=== PATIENT | male | born 1970 | race Caucasian/White ===

== ENCOUNTER 2018-05-27 05:46 | Inpatient (IN) ==
[2018-05-27] MEDS ORDERED: Famotidine PF Inj 20 MG/2 ML Vial IV.PUSH ONE (06:09)
[2018-05-27] MEDS ORDERED: Gabapentin 300 MG Capsule PO ONE (06:09)
[2018-05-27] MEDS ORDERED: Celecoxib 200 MG Capsule PO ONE (06:09)
[2018-05-27] MEDS ORDERED: Dexamethasone Inj 20 MG/5 ML Vial IV.PUSH ONE (06:09)
[2018-05-27] MEDS ORDERED: Chlorhexidine 4% Topical 120 APPLIC/120 ML Bottle TOPICAL SCH (06:15)
[2018-05-27] MEDS ORDERED: Chlorhexidine Gluconate 2% 1 Pack (2 Cloths) TOPICAL ONE (06:21)
[2018-05-27] MEDS ORDERED: Metoprolol Tartrate 25 MG Tablet PO ONE (06:21)
[2018-05-27] MEDS ORDERED: Vancomycin Inj 1,000 MG in Sodium Chlor 0.9% Inj 250 ML IV.SIG SCH (07:00)
[2018-05-27] MEDS ORDERED: Sodium Chlor 0.9% Inj 500 ML IV.SIG SCH (07:00)
[2018-05-27] MEDS ORDERED: ceFAZolin 2 GM Premix Inj 2 GM/50 ML PIGGYBACK IV.SIG SCH ×2 (07:00→17:00)
[2018-05-27] MEDS ORDERED: Glycopyrrolate Inj 1 MG/5 ML Syringe IV.PUSH ONE (08:26)
[2018-05-27] MEDS ORDERED: Lidocaine PF 1% Inj 5 ML Syringe OTHER ONE (08:26)
[2018-05-27] MEDS ORDERED: Neostigmine Inj 5 MG/5 ML Syringe IV.PUSH ONE (08:26)
[2018-05-27] MEDS ORDERED: Phenylephrine/NS 1000 MCG/10ML Syringe IV.PUSH ONE (08:26)
[2018-05-27] MEDS ORDERED: TRANEXAMIC ACID IV.SIG SCH (08:30)
[2018-05-27] MEDS ORDERED: Sodium Chlor 0.9% Inj 40 ML, Bupivacaine Liposo PF 1.3% Inj 20 ML P-ARTICULR SCH ×2 (08:30)
[2018-05-27] MEDS ORDERED: SODIUM CHLOR 0.9% IV.SIG SCH (08:30)
[2018-05-27] MEDS ORDERED: Bupivacaine Liposomal PF 1.3% Inj 20 ML Vial ONE (10:19)
[2018-05-27] MEDS ORDERED: Bupivacaine/Epinephrine Inj 0.25% 50 ML Vial ONE (10:24)
[2018-05-27] MEDS ORDERED: Morphine Inj 4 MG/ML Vial IV.PUSH PRN (10:35)
[2018-05-27] MEDS ORDERED: Promethazine 25 MG Supp RECTAL PRN (10:35)
[2018-05-27] MEDS ORDERED: Bisacodyl 10 MG Supp RECTAL PRN (10:35)
[2018-05-27] MEDS ORDERED: Post-op Orders (for Pharmacy) OTHER STA (10:35)
--- NOTE | 2018-05-27 10:41 | P.OP ---
- Preoperative Diagnosis (1) Unilateral primary osteoarthritis, right hip Date of procedure: 05/27/18 Procedure: Right total hip arthroplasty by anterior approach Anesthesia: TOD Surgeon: Esteban Robles MD Box Estimator: SLADE Logan PA-C The surgical procedure was assisted by my physician assistant principal. My P.A. presence was necessary throughout this case for the manipulation and positioning of the surgical extremity. My P.A. was assisting me throughout the duration of this procedure. The skill set of a physician assistant principal was medically necessary to complete this procedure. During the surgical case the environmental technician was working at the back table and the physician assistant principal was directly assisting me. Operation and Findings: PLAN OF ACTIVITY Weight bear as tolerated. IMPLANTS USED DePuy Corail size [11] collared stem with a size [52] [place] Gription cup, [52 /32] Altrx poly liner, and a [32+1.5] Biolox ceramic head. DETAILS OF PROCEDURE: This patient has a long history of hip pain. Patient was found to have severe osteoarthritis. The patient had radiographic evidence of joint space narrowing with [id number] arthritis and osteophytes around the acetabulum as well as the femoral head. There was also some cystic changes. The patient failed conservative treatment with pain medications, anti-inflammatories, physical therapy, assistive devices including a cane, as well as therapeutic injection of the hip. Patient's hip arthritis was limiting his ability to ambulate and perform activities of daily living. The patient wished to proceed with surgery and informed consent was obtained. Operative site was marked. I discussed both posterior approach and anterior approach with the patient and decision was made for anterior approach. Patient was brought to OR and placed on OR table. IV sedation and general anesthesia was administered by anesthesiologist. Patient positioned on a Shantell table and was given IV antibiotics. Time-out procedure was performed. The hip and thigh were prepped with alcohol followed by Hibiclens. The thigh was draped in the usual sterile fashion. Clean Air Suite was used for this procedure. The procedure began with a 5-inch incision over the anterolateral thigh. Subcutaneous tissue was dissected with Bovie. The fascia over the tensa fasciae latae was incised. Care was taken to avoid injury to the lateral femoral cutaneous nerve. The tensor muscle was retracted laterally. Sartorius was retracted medially. Retractors were now placed. The reflected head of the rectus is now elevated. A capsulotomy was performed over the anterior head capsule. Sutures were placed to help retract the capsule. At this point the femoral head and neck were identified. With soft tissue protected, oscillating saw was used to make a cut through the femoral neck, the femoral head was now removed. At this point attention was turned to preparation of the acetabulum. The labrum was excised. The acetabulum was sequentially reamed up to size [52]. A [place] cup was now placed. Fluoroscopy was used to aid in identification of appropriate version. Cup was fully impacted and found to have excellent fit. Hole eliminator was now placed. The liner was now impacted into the cup. At this point the hip was externally rotated. A hook was placed around the proximal femur. The capsule was released off the lateral and medial femur. The hip was now extended and adducted. Retractors were placed around the proximal femur to allow for exposure. A box osteotome was used to remove the lateral cortex of the femoral neck. A broach was used to help lateralize the prosthesis. Canal finder was used to create a path down the canal. Next, the canal was sequentially broached up to size [11]. The canal was very tight distally. Flexible reamers were used distally. Size 11 was found to be an excellent fit. Calcar planer was placed. A standard head was placed, and the hip was reduced. The hip was found to have excellent stability with good range of motion. The leg lengths were measured under fluoroscopy and found to be equal compared to preoperatively. Trial broach was removed. The Corail stem was opened. Stem was fully impacted into the proximal femur in appropriate version. The femoral head was placed. The hip was again reduced. Fluoroscopy confirmed excellent alignment of prosthesis. The wound was thoroughly irrigated and capsule was closed with #1 Vicryl. The fascia over the tensor fasciae muscle was closed with #1 Vicryl, subcutaneous tissue was closed with 3-0 Vicryl and the skin was closed with zaheer and Dermabond skin closure. The capsule layers, muscle, and subcutaneous tissue were injected with a mixture of saline and bupivicaine. Dressings were applied. The patient was transferred to Recovery Room in stable condition.
--- NOTE | 2018-05-27 11:12 | P.DCO ---
- Physical Therapy Physical Therapy: Gait training, Safety evaluation Hip: Total hip, Protocol: Right Right Lower Extremity Weight Bearing: Weight bearing as tolerated - Nursing Dressing changes: Daily dressing change (Beginning 06/02/2018 unless the dressing has become saturated or disheveled. Remove outer dressing ensuring that surgical tape remains over the incision. Then replace outer dressing with Primapore avoiding the adhesive on the surgical tape. Primapore is will be changed every other day or every day depending on drainage.) - Certification Need for Home Health services: I have seen patient Jonel Rios on 05/27/18. My clinical findings support the need for the requested home health care services because: Need for Home Health Services: Limited mobility due to disease progression Homebound Certification: I certify that my clinical findings support that this patient is homebound because: Homebound Certification: Post-op weakness
[2018-05-27] MEDS ORDERED: fentaNYL Citrate Inj 100 MCG/2 ML Ampul ONE (11:24)
[2018-05-27] MEDS ORDERED: Tranexamic Acid Inj 1,000 MG in Sodium Chlor 0.9% Inj 100 ML IV.SIG SCH (12:00)
--- NOTE | 2018-05-27 14:11 | XR ---
EXAM DATE: 05/27/2018 12:00 AM EDT AGE/SEX: 48 years / Male INDICATIONS: Right anterior hip replacement. CLINICAL DATA: This is the patient's initial encounter. Patient reports that signs and symptoms have been present for 1 day and indicates a pain score of Nonresponsive. MEDICAL/SURGICAL HISTORY: None. None. COMPARISON: No prior exams available for comparison. CONCLUSION: Fluoroscopic image during placement of right hip arthroplasty. Electronically signed by: Andry Akins MD 05/27/2018 2:10 PM EDT
[2018-05-27] MEDS: Calcium/Vitamin D 250/125 MG Tablet PO SCH ×2 (14:40→18:16)
[2018-05-27] MEDS: Celecoxib 200 MG Capsule PO SCH (21:18)
[2018-05-27] MEDS: Senna/Docusate Sodium 8.6/50 MG Tablet PO SCH (21:18)
--- NOTE | 2018-05-28 07:13 | P.PNOP ---
Subjective Interval history: Doing well. Standing bedside. States that he is excited and ready to go home today Physical Exam Vital signs: Vital Signs 05/27/18 11:09 05/27/18 11:15 05/27/18 11:30 Temperature 98.1 F Pulse Rate 77 74 76 Respiratory Rate 19 12 18 Blood Pressure 119/57 L 113/57 L 138/78 Pulse Oximetry 100 100 100 05/27/18 11:45 05/27/18 12:00 05/27/18 15:11 Temperature 97.7 F Pulse Rate 70 66 Respiratory Rate 16 15 18 Blood Pressure 125/71 118/67 Pulse Oximetry 99 100 05/27/18 16:00 05/27/18 18:03 05/27/18 20:00 Temperature 97.3 F L 98.1 F Pulse Rate 64 62 Respiratory Rate 20 18 18 Blood Pressure 112/67 122/67 Pulse Oximetry 98 99 05/28/18 00:00 05/28/18 04:00 Temperature 97.8 F 97.9 F Pulse Rate 75 64 Respiratory Rate 18 17 Blood Pressure 117/55 L 103/66 Pulse Oximetry 98 98 Intake & Output 05/27/18 05/28/18 05/28/18 18:59 06:59 18:59 Intake Total 3009.7 / 3009.7 Output Total 350 / 350 Balance 2659.7 / 2659.7 Weight 64.6 kg 64 kg Intake: IV 559.7 / 559.7 Ofirmev Inj 1,000 mg In 100 ml 100 / 100 @ 400 mls/hr IV.SIG Q12H DEB Rx #:[id number] Cyklokapron Inj 970 MG In NS 109.7 / 109.7 Inj 100 ML @ 200 mls/hr IV.SIG ONCE DEB Rx#:[id number] Vancomycin Inj 1,000 MG In NS 250 / 250 Inj 250 ML @ 250 mls/hr IV.SIG MEDICAL LABORATORY TECHNICAL OFFICER DEB Rx#:[id number] Ancef 2 GM Premix Inj 2 gm In 100 / 100 50 ml @ 100 mls/hr IV.SIG Q8H DEB Rx#:[id number] Oral 900 / 900 Anesthesia Amount 1550 / 1550 Output: Urine 0 / 0 Estimated Blood Loss 350 / 350 Other: # Voids 2 Date of Last Bowel Movement 05/27/18 # Bowel Movements 0 Narrative: Right lower extremity: Clean dry dressings intact. No drainage through the silver dressing. Minimal swelling. Intact sensation distally with good capillary refills. Active dorsiflexion plantar flexion of the foot. He is able stand and bear full weight Results - Labs Laboratory Results - last 24 hr 05/27/18 06:24 Antibody Screen Negative - Imaging Impressions Hip X-Ray 05/27/18 00:00 CONCLUSION: Fluoroscopic image during placement of right hip arthroplasty. Assessment and Plan - Ortho Post Op Day # 1 - Problem List (1) Status post total hip replacement, right Code(s): Z96.641 - Presence of right artificial hip joint Status: Acute - Assessment and Plan Right total hip arthroplasty anterior approach POD 1 Weightbearing as tolerated Maintain dressing over incision. Home health care, 's choice, will change dressing POD 6 ensuring that surgical tape remains over the incision. New Primapore will be added after. Incentive spirometry María Will plan follow-up appointment in 2 weeks Julienne and María are sent to his pharmacy Discharged home today with home health care
--- NOTE | 2018-05-28 07:22 | P.DS ---
Date of admission: 05/27/18 05:46 Primary care physician: Simon Hassan MD Attending physician on discharge: Esteban Robles Anticipated date of discharge: 05/28/18 Brief History from admission: Patient has had a long time history of right hip pain. He was seen in our office on an outpatient basis for evaluation. It was noted that he had end- stage osteoarthritis of the right hip. Conservative measures were failed which included activity modification, anti-inflammatories and injection. Decision was made to move forward with elective right total hip arthroplasty. DS: Diagnosis - Discharge Diagnosis (1) Status post total hip replacement, right Status: Acute DS: Summary Hospital Course: Patient tolerated procedure well. He decided that he would like to stay overnight for evaluation following his surgery. On postop day 0 as well as postop day 1, he was ambulatory with therapy and on his own strength. His pain was well controlled. He was hemodynamically stable and fit for discharge home on postop day 1. He will be discharged home today. He will remain fully weightbearing. He will keep his incision clean and dry maintain the current dressing for 6 days and begin daily dressing changes on postop day 7. Prescription for hydrocodone as well as Xarelto was sent to his pharmacy. He will have DVT prophylaxis for approximately 1 month. He will transition to aspirin 81 mg 1 p.o. twice daily after 2 weeks. He will follow-up in outpatient setting in the office with Dr. Robles or his PA. - Time Spent with Patient Total time spent providing and/or coordinating discharge services: Less than 30 minutes - Quality: VTE Deep Vein Thrombosis/Pulmonary Embolism Present on Admission: No Exam Vital signs: Vital Signs 05/27/18 11:09 05/27/18 11:15 05/27/18 11:30 Temperature 98.1 F Pulse Rate 77 74 76 Respiratory Rate 19 12 18 Blood Pressure 119/57 L 113/57 L 138/78 Pulse Oximetry 100 100 100 05/27/18 11:45 05/27/18 12:00 05/27/18 15:11 Temperature 97.7 F Pulse Rate 70 66 Respiratory Rate 16 15 18 Blood Pressure 125/71 118/67 Pulse Oximetry 99 100 05/27/18 16:00 05/27/18 18:03 05/27/18 20:00 Temperature 97.3 F L 98.1 F Pulse Rate 64 62 Respiratory Rate 20 18 18 Blood Pressure 112/67 122/67 Pulse Oximetry 98 99 05/28/18 00:00 05/28/18 04:00 Temperature 97.8 F 97.9 F Pulse Rate 75 64 Respiratory Rate 18 17 Blood Pressure 117/55 L 103/66 Pulse Oximetry 98 98 Intake & Output 05/27/18 05/28/18 05/28/18 18:59 06:59 18:59 Intake Total 3009.7 / 3009.7 Output Total 350 / 350 Balance 2659.7 / 2659.7 Weight 64.6 kg 64 kg Intake: IV 559.7 / 559.7 Ofirmev Inj 1,000 mg In 100 ml 100 / 100 @ 400 mls/hr IV.SIG Q12H DEB Rx #:[id number] Cyklokapron Inj 970 MG In NS 109.7 / 109.7 Inj 100 ML @ 200 mls/hr IV.SIG ONCE DEB Rx#:[id number] Vancomycin Inj 1,000 MG In NS 250 / 250 Inj 250 ML @ 250 mls/hr IV.SIG DIPLOMATIC COURIER DEB Rx#:[id number] Ancef 2 GM Premix Inj 2 gm In 100 / 100 50 ml @ 100 mls/hr IV.SIG Q8H DEB Rx#:[id number] Oral 900 / 900 Anesthesia Amount 1550 / 1550 Output: Urine 0 / 0 Estimated Blood Loss 350 / 350 Other: # Voids 2 Date of Last Bowel Movement 05/27/18 # Bowel Movements 0 Narrative: RLE: dressings clean and dry. intact. NVI Results Procedures completed during hospitalization: Right anterior total hip arthroplasty - Impressions ITS Impressions Hip X-Ray 05/27/18 00:00 CONCLUSION: Fluoroscopic image during placement of right hip arthroplasty. Discharge Plan - Discharge Disposition Patient Disposition: W/Home Health Service - Discharge Condition Condition: Good - Discharge Order Discharge Orders: Discharge Order (Routine); Ordered 05/27/18 Ordered By: Esteban Robles - Physicians Team Primary Care Provider: Simon Hassan Attending Provider: Esteban Robles Other Providers: [facility]ency - Rxs /Orders / Referrals /Forms Prescriptions: Continue aspirin [Aspirin Low Dose] 81 mg Tablet,Delayed Release (Dr/Ec) 81 mg PO DAILY ibuprofen 200 mg Tablet 200 mg PO TID PRN (Reason: Pain) [id number] [Adults Multivitamin] 18 mg iron-400 mcg-25 mcg Tablet 1 tab PO DAILY turmeric root extract 500 mg Capsule 500 mg PO DAILY Ambulatory Orders / Order Sets / DME: Walker With Front Wheels (1 each) (Routine) Location: Determined by Patient Ordered By: Garrick Malcolm Referrals: Simon Hassan MD [Primary Care Provider] - See Instructions
[2018-05-28 10:13] VITALS: BP 128/71; PULSE 51; RESP 16; TEMP 97.4; O2SAT 100
[2018-05-28] MEDS: Celecoxib 200 MG Capsule PO SCH (10:42)
[2018-05-28] MEDS: Calcium/Vitamin D 250/125 MG Tablet PO SCH (10:42)
[2018-05-28] MEDS: Senna/Docusate Sodium 8.6/50 MG Tablet PO SCH (10:42)
== END 2018-05-28 13:59 | disposition home health service (06) ==
LOC: HSDI 05:46 → N06 12:50
PROVIDERS: ADMIT Orthopaedic Surgery Orthopaedic Trauma; ATTEND Orthopaedic Surgery Orthopaedic Trauma